=== PATIENT | female | born 1970 | race Caucasian/White ===

== ENCOUNTER 2018-05-08 19:53 | Emergency (ER) | payer MEDICAID ==
[~2018-05-08] VITALS: Ht 170.2 cm; Wt 90.7 kg
[2018-05-08 19:57] VITALS: BP_SYST 134
--- NOTE | 2018-05-08 20:05 | NUR ---
Pt to ER bed 4 for evaluation. Side rails up.
--- NOTE | 2018-05-08 20:10 | NUR ---
Pt alert and oriented. Pt C/O N/V/D after eating shrimp earlier this afternoon. VSS. No signs of SOB or acute distress noted. Denies pain at this time. Family at bedside. Will continue to monitor.
[2018-05-08] MEDS ORDERED: NACL 0.9% 1,000 ML IV ONE (20:13)
--- NOTE | 2018-05-08 20:20 | NUR ---
ER MD ROBINS AT BEDSIDE EXAMINING PATIENT.
--- NOTE | 2018-05-08 20:45 | NUR ---
# 22 gauge angiocath placed to LAC. Use of asceptic technique. Opsite placed over site. Blood return noted. Blood for lab drawn from site. Flushed with 10 cc of normal saline. No evidence of infiltration noted. Patient tolerated well.
[2018-05-08 21:01] LABS: RED BLOOD CELL COUNT(AUTO) 5.07 MIL/uL (4.2-6.2); WHITE BLOOD COUNT (AUTO) 15.7 K/uL (4.8-10.8)
[2018-05-08 21:02] LABS: HEMATOCRIT 43.5 % (36-48); HEMOGLOBIN 14.5 g/dL (12.0-16.0); MEAN CORPUSCULAR HEMOGLOBIN 29 pg (27-31); MEAN CORPUSCULAR HGB CONC 33 % (32-36); MEAN CORPUSCULAR VOLUME 86 fL (79.0-98.0); NEUTROPHILS % (AUTO) 84.1 % (40.0-70.0); PLATELET COUNT (AUTO) 321 K/uL (130-430); RED CELL DISTRIBUTION WIDTH 13.5 % (9.0-15.0)
[2018-05-08 21:03] LABS: BASOPHILS % (AUTO) 0.3 % (0.0-2.0); EOSINOPHILS # (AUTO) 0.1 K/uL (0.0-0.4); EOSINOPHILS % (AUTO) 0.4 % (0.0-4.0); LYMPHOCYTES # (AUTO) 1.2 K/uL (1.0-5.5); LYMPHOCYTES % (AUTO) 7.4 % (20.5-51.5); MONOCYTES # (AUTO) 1.2 K/uL (0.0-1.0); MONOCYTES % (AUTO) 7.8 % (1.7-9.3); NEUTROPHILS # (AUTO) 13.2 K/uL (1.8-7.7)
[2018-05-08 21:09] LABS: CALCIUM 9.9 mg/dL (8.4-11.0); CREATININE 0.75 mg/dL (0.55-1.30); POTASSIUM 3.8 mmol/L (3.5-5.1)
[2018-05-08 21:15] LABS: ALBUMIN 4.1 g/dL (3.4-4.8); TOTAL BILIRUBIN 0.5 mg/dL (0.0-1.0)
[2018-05-08] MEDS ORDERED: ONDANSETRON HCL 4 MG/2 ML VIAL IVP ONE (22:15)
--- NOTE | 2018-05-08 22:15 | NUR ---
Pt resting in bed. IVF infusing, no signs of infiltration noted. VSS. Will continue to monitor.
[2018-05-08 23:45] VITALS: BP_SYST 109
--- NOTE | 2018-05-08 23:45 | NUR ---
Patient given written and verbal discharge instructions and verbalizes understanding. ER MD Hall discussed with patient the results and treatment provided. Patient in stable condition. ID arm band removed. IV catheter removed intact and dressing applied, no active bleeding. Rx of Zofran given. Patient educated on pain management and to follow up with PMD. Pain Scale 0/10. Opportunity for questions provided and answered. Medication side effect fact sheet provided.
== END 2018-05-08 23:45 | disposition home or self-care (01) ==
LOC: SED 19:53
DX: A05.9 Bacterial foodborne intoxication, unspecified (principal); R03.0 Elevated blood-pressure reading, without diagnosis of hypertension
CPT/HCPCS: 36415; 80053; 85025; 96361; 96374; 99283; J2405; J7030

== ENCOUNTER 2018-11-04 17:47 | Emergency (ER) | payer MEDICAID ==
[~2018-11-04] VITALS: Ht 170.2 cm; Wt 90.3 kg
[2018-11-04 17:56] VITALS: BP_SYST 160
--- NOTE | 2018-11-04 19:53 | NUR ---
Patient to [facility] for evaluation. Side rails up.
--- NOTE | 2018-11-04 19:54 | NUR ---
MICHELLE BRAVO examining patient.
--- NOTE | 2018-11-04 19:57 | NUR ---
Patient compalins of dry cough with nasal and chest congestion, body aches, and subjective chills x 3 days. Pain 0/10. No other complaints/injuries per patient or as noted. Will continue to monitor.
[2018-11-04 20:11] VITALS: BP_SYST 160
--- NOTE | 2018-11-04 20:11 | NUR ---
Patient given written and verbal discharge instructions and verbalizes understanding. ER TACK PULLER MACHINE discussed with patient the results and treatment provided. Patient in stable condition. ID arm band removed. Rx of Medrol,motrin and promethazine with codeine given. Patient educated on pain management and to follow up with PMD. Pain Scale 0/10 Opportunity for questions provided and answered. Medication side effect fact sheet provided.
== END 2018-11-04 20:11 | disposition home or self-care (01) ==
LOC: SED 17:47
DX: J06.9 Acute upper respiratory infection, unspecified (principal); R03.0 Elevated blood-pressure reading, without diagnosis of hypertension
CPT/HCPCS: 36415; 86710; 99283

== ENCOUNTER 2018-12-08 00:46 | Inpatient (IN) | payer MEDICAID ==
[~2018-12-08] VITALS: Ht 170.2 cm; Wt 90.7 kg
[2018-12-08 00:46] VITALS: BP_SYST 139
[2018-12-08] MEDS ORDERED: ONDANSETRON HCL 4 MG/2 ML VIAL IM ONE (01:00)
[2018-12-08] MEDS ORDERED: NACL 0.9% 1,000 ML IV ONE ×3 (01:15→03:45)
[2018-12-08 01:34] LABS: BASOPHILS # (AUTO) 0.1 K/uL (0.0-0.2); EOSINOPHILS % (AUTO) 0.2 % (0.0-4.0); HEMATOCRIT 38.6 % (36-48); LYMPHOCYTES # (AUTO) 4.3 K/uL (1.0-5.5); LYMPHOCYTES % (AUTO) 51.2 % (20.5-51.5); MEAN CORPUSCULAR HEMOGLOBIN 27 pg (27-31); MEAN CORPUSCULAR HGB CONC 34 % (32-36); MEAN CORPUSCULAR VOLUME 81 fL (79.0-98.0); MONOCYTES # (AUTO) 0.2 K/uL (0.0-1.0); MONOCYTES % (AUTO) 2.7 % (1.7-9.3); NEUTROPHILS # (AUTO) 3.8 K/uL (1.8-7.7); NEUTROPHILS % (AUTO) 44.9 % (40.0-70.0); PLATELET COUNT (AUTO) 298 K/uL (130-430); RED BLOOD CELL COUNT(AUTO) 4.76 MIL/uL (4.2-6.2); RED CELL DISTRIBUTION WIDTH 18.1 % (9.0-15.0); WHITE BLOOD COUNT (AUTO) 8.4 K/uL (4.8-10.8)
[2018-12-08 01:35] LABS: CALCIUM 9.3 mg/dL (8.4-11.0); CREATININE 0.64 mg/dL (0.55-1.30)
[2018-12-08 01:41] LABS: ALBUMIN 3.9 g/dL (3.4-4.8); TOTAL BILIRUBIN 0.5 mg/dL (0.0-1.0)
[2018-12-08 01:48] LABS: POTASSIUM 2.6 mmol/L (3.5-5.1)
[2018-12-08] MEDS ORDERED: ONDANSETRON HCL 4 MG/2 ML VIAL IVP ONE (02:00)
[2018-12-08] MEDS ORDERED: KCL 40 mEq in 100 mL (PREMIX) 100 ML IV ONE (02:00)
[2018-12-08] MEDS ORDERED: KCL 20 mEq in 100 mL (PREMIX) 100 ML IV ONE (02:00)
[2018-12-08] MEDS ORDERED: KCL 20 mEq in 100 mL (PREMIX) 200 ML IV ONE (02:10)
[2018-12-08] MEDS ORDERED: HALOPERIDOL LACTATE 5 MG/ML VIAL IVP ONE (02:45)
[2018-12-08] MEDS ORDERED: METOCLOPRAMIDE HCL 10 MG/2 ML VIAL IVP ONE (02:45)
[2018-12-08] MEDS ORDERED: ONDANSETRON HCL 4 MG/2 ML VIAL IVP PRN ×2 (05:00→05:45)
[2018-12-08] MEDS ORDERED: D5/0.45 NS 1,000 ML IV SCH (05:00)
[2018-12-08] MEDS ORDERED: ACETAMINOPHEN 325 MG TABLET PO PRN (05:45)
[2018-12-08] MEDS ORDERED: LORazepam 2 MG/ML VIAL IVP PRN (05:45)
[2018-12-08] MEDS ORDERED: HYDROcodone/ACETAMIN 10-325 MG TAB PO PRN (05:45)
[2018-12-08] MEDS ORDERED: HYDROcodone/ACETAMIN 5-325 MG TAB (NORCO/ VICODIN) PO PRN (05:45)
[2018-12-08 06:05] VITALS: BP_SYST 101
[2018-12-08] MEDS ORDERED: FAMOTIDINE PF 20 MG/2 ML VIAL IVP SCH (06:30)
[2018-12-08 08:00] VITALS: BP_SYST 97
[2018-12-08 16:33] VITALS: BP_SYST 103
== END 2018-12-08 16:30 | disposition left against medical advice (07) | DRG 426 ==
LOC: SED 00:46 → SMU 05:02
PROVIDERS: ADMIT Preventive Medicine Preventive Medicine/Occupational Environmental Medicine; ATTEND Preventive Medicine Preventive Medicine/Occupational Environmental Medicine
DX: E87.1 Hypo-osmolality and hyponatremia (principal); M41.9 Scoliosis, unspecified; E87.6 Hypokalemia; R73.9 Hyperglycemia, unspecified; Z53.29 Procedure and treatment not carried out because of patient's decision for other reasons
CPT/HCPCS: 36415; 74018; 80053; 83690-TC; 85025; 96365; 96366; 96372; 96375; 99285; J2405; J2765; J3480; J3490; J7030

== ENCOUNTER 2018-12-27 21:49 | Emergency (ER) | payer MEDICAID ==
[~2018-12-27] VITALS: Ht 170.2 cm; Wt 90.7 kg
[2018-12-27 21:55] VITALS: BP_SYST 120
[2018-12-28 00:56] VITALS: BP_SYST 120
== END 2018-12-28 00:56 | disposition home or self-care (01) ==
LOC: SED 21:49
DX: J20.9 Acute bronchitis, unspecified (principal)
CPT/HCPCS: 71046-TC; 99283